=== PATIENT | female | born 1985 | race Caucasian/White ===

== ENCOUNTER 2019-09-20 20:58 | Emergency (ER) | payer BC ==
[~2019-09-20] VITALS: Ht 157.5 cm; Wt 63.5 kg
[2019-09-20 21:13] VITALS: BP 105/62
[2019-09-20] MEDS ORDERED: CEPH-264 PO (21:55)
[2019-09-20] MEDS ORDERED: MELO7.5T29 PO (21:55)
--- NOTE | 2019-09-20 21:56 | PHYS DOC ---
Past History Past Medical History: UTI Past Surgical History: Tubal ligation Smoking: Non-smoker Alcohol Use: None Drug Use: None Adult General Chief Complaint Chief Complaint: PAIN ON URINATION HPI HPI Patient is a 33-year-old female presents with painful urination like previous urinary tract infections. This started last night. Symptoms improve with Azo. Worse and as the Azo wears off. No back pain or flank pain. This is her third u rinary tract infection in the past month. No fever. No nausea or vomiting. Symptoms are mild to moderate in intensity.[] Review of Systems Review of Systems Constitutional: Denies fever or chills [] Eyes: Denies change in visual acuity, redness, or eye pain [] HENT: Denies nasal congestion or sore throat [] Respiratory: Denies cough or shortness of breath [] Cardiovascular: No chest pain or palpitations[] GI: Denies abdominal pain, nausea, vomiting, bloody stools or diarrhea [] : See history of present illness[] Musculoskeletal: Denies back pain or joint pain [] Integument: Denies rash or skin lesions [] Neurologic: Denies headache, focal weakness or sensory changes [] Endocrine: Denies polyuria or polydipsia [] All other systems were reviewed and found to be within normal limits, except as documented in this note. Allergies Allergies Allergies Coded Allergies Type Severity Reaction Last Updated Verified No Known Drug Allergies 09/20/19 No Physical Exam Physical Exam Constitutional: Well developed, well nourished, no acute distress, non-toxic appearance. [] HENT: Normocephalic, atraumatic, bilateral external ears normal, oropharynx moist, no oral exudates, nose normal. [] Eyes: PERRLA, EOMI, conjunctiva normal, no discharge. [] Neck: Normal range of motion, no tenderness, supple, no stridor. [] Cardiovascular:Heart rate regular rhythm, no murmur [] Lungs & Thorax: Bilateral breath sounds clear to auscultation [] Abdomen: Bowel sounds normal, soft, no tenderness, no masses, no pulsatile masses. [] Skin: Warm, dry, no erythema, no rash. [] Back: No tenderness, no CVA tenderness. [] Extremities: No tenderness, no cyanosis, no clubbing, ROM intact, no edema. [] Neurologic: Alert and oriented X 3, normal motor function, normal sensory function, no focal deficits noted. [] Psychologic: Affect normal, judgement normal, mood normal. [] Current Patient Data Vital Signs Vital Signs Date Time Temp Pulse Resp B/P (MAP) Pulse Ox O2 Delivery O2 Flow Rate FiO2 09/20/19 21:13 98.5 98 20 98 Room Air Lab Results Laboratory Tests Test 09/20/19 21:10 Urine Collection Type Unknown Urine Color Aline Urine Clarity Hazy Urine pH 5.0 Urine Specific [place] 1.015 Urine Protein (NEG-TRACE) Urine Glucose (UA) mg/dL (NEG) Urine Ketones (Stick) mg/dL (NEG) Urine Blood (NEG) Urine Nitrite (NEG) Urine Bilirubin (NEG) Urine Urobilinogen Dipstick mg/dL (0.2 mg/dL) Urine Leukocyte Esterase (NEG) EKG EKG [] Radiology/Procedures Radiology/Procedures [] Course & Med Decision Making Course & Med Decision Making Pertinent Labs and Imaging studies reviewed. (See chart for details) ED course: Patient arrived, was placed in bed, and tolerated exam well. She was given initial dose of antibiotics. Findings and plan were discussed with the patient voiced understanding. All questions were answered. She was discharged in improved condition. Medical decision making: Urinalysis is unable to be reasonably assessed given the presence of the Pyridium. Will treat her empirically. No evidence of pyelonephritis. No evidence of systemic toxicity.[] Dragon Disclaimer Dragon Disclaimer This electronic medical record was generated, in whole or in part, using a voice recognition dictation system. Departure Departure: Impression: Primary Impression: Urinary tract infection Disposition: 01 HOME, SELF-CARE Condition: IMPROVED Referrals: PCP,UNKNOWN (PCP) Patient Instructions: Urinary Tract Infection Additional Instructions: Drink plenty of fluids. Take the medication as prescribed. Follow-up with your regular doctor in 2 days. Return to the ER if worsening pain, fever of more than 101, unable to tolerate the medicine, or any other concerns. Scripts Meloxicam (MELOXICAM) 7.5 Mg Tablet 7.5 MG PO DAILY for PAIN, #20 TAB Prov: SOTO HOPE DO 09/20/19 Cephalexin (KEFLEX) 500 Mg Capsule 500 MG PO TID for UTI for 10 Days, #30 CAP Prov: SOTO HOPE DO 09/20/19 Problem Qualifiers Primary Impression: Urinary tract infection Urinary tract infection type: site unspecified Hematuria presence: without hematuria Qualified Codes: N39.0 - Urinary tract infection, site not specified SOTO HOPE DO Sep 20, 2019 21:56
[2019-09-20] MEDS ORDERED: CEPHALEXIN 250 MG CAPSULE PO ONE (22:00)
[2019-09-20 22:26] LABS: CLARITY,URINE HAZY; COLOR,URINE ORANGE
[2019-09-20 22:28] LABS: BACTERIA,URINE FEW /HPF (0-FEW); SQUAMOUS EPITHELIAL CELL,UR OCC /LPF; WBC,URINE 20-40 /HPF (0-4)
== END 2019-09-20 22:10 | disposition home or self-care (01) ==
LOC: ER 20:58
DX: N39.0 Urinary tract infection, site not specified (principal); Z87.440 Personal history of urinary (tract) infections; Z98.51 Tubal ligation status
CPT/HCPCS: 81001; 87086; 87186; 99284

== ENCOUNTER 2020-02-19 01:12 | Emergency (ER) | payer BC ==
[~2020-02-19] VITALS: Ht 157.5 cm; Wt 58.0 kg
[2020-02-19 01:12] VITALS: BP 147/91
[~2020-02-19 01:12] MED LIST: CEPH-264 PO; MELO7.5T29 PO
--- NOTE | 2020-02-19 01:46 | PHYS DOC ---
Past History Past Medical History: No Pertinent History, UTI Past Surgical History: Tubal ligation Smoking: Non-smoker Alcohol Use: None Drug Use: Cocaine General Adult EDM: Chief Complaint: Mouth pain HPI: HPI: Patient is a 34 year old female who presents with complaint of mouth pain. The patient states that she has had multiple episodes of mouth pain. She states that she has been diagnosed with thrush in the past few months and was started on oral treatment for this condition. She most recently was seen and started on an oral rinse medication, presumably nystatin, for treatment. She notes that she has no significant past medical history but does admit to regular use of cocaine. She presents tonight to the emergency department complaining that she is still having discomfort in her mouth and is concerned that her thrush is still present. She is also concerned that her use of cocaine may be causing her thrush and could be a sign that she "has no white blood cells." The patient does not engage in use of IV drug use. Patient states that she is monogamous wi th one sexual partner. She is not having any abnormal vaginal discharge or pelvic pain. Denies shortness of breath, chest pain, difficulty breathing, nausea, vomiting, or fever. She has had no known contact with any individuals who have been confirmed or suspected of having COVID-19. Review of Systems: Review of Systems: Constitutional: Denies fever or chills Eyes: Denies change in visual acuity HENT: Mouth pain, denies nasal congestion Respiratory: Denies cough or shortness of breath Cardiovascular: Denies chest pain or edema GI: Denies abdominal pain, nausea, vomiting, bloody stools or diarrhea : Denies dysuria Musculoskeletal: Denies back pain or joint pain Integument: Denies rash Neurologic: Denies headache, focal weakness or sensory changes Endocrine: Denies polyuria or polydipsia Lymphatic: Denies swollen glands Heart Score: Risk Factors: Heart score is not applicable to this patient case Risk Factors: DM, Current or recent (<one month) smoker, HTN, HLP, family history of CAD, obesity. Risk Scores: Score 0 - 3: 2.5% MACE over next 6 weeks - Discharge Home Score 4 - 6: 20.3% MACE over next 6 weeks - Admit for Clinical Observation Score 7 - 10: 72.7% MACE over next 6 weeks - Early Invasive Strategies Allergies: Allergies: Allergies Coded Allergies Type Severity Reaction Last Updated Verified No Known Drug Allergies 09/20/19 No Physical Exam: PE: Constitutional: Well developed, well nourished, no acute distress, non-toxic appearance. [] HENT: Normocephalic, atraumatic, bilateral external ears normal, oropharynx moist, no oral exudates, nose normal. [] Eyes: PERRLA, EOMI, conjunctiva normal, no discharge. [] Neck: Normal range of motion, no tenderness, supple, no stridor. [] Cardiovascular:Heart rate regular rhythm, no murmur [] Lungs & Thorax: Bilateral breath sounds clear to auscultation [] Abdomen: Bowel sounds normal, soft, no tenderness, no masses, no pulsatile masses. [] Skin: Warm, dry, no erythema, no rash. [] Back: No tenderness, no CVA tenderness. [] Extremities: No tenderness, no cyanosis, no clubbing, ROM intact, no edema. [] Neurologic: Alert and oriented X 3, normal motor function, normal sensory function, no focal deficits noted. [] Current Patient Data: Labs: Not performed Vital Signs: Vital Signs Date Time Temp Pulse Resp B/P (MAP) Pulse Ox O2 Delivery O2 Flow Rate FiO2 02/19/20 01:12 97.9 96 18 147/91 (109) 100 Room Air EKG: EKG: Not performed [] Radiology/Procedures: Radiology/Procedures: Not performed [] Course & Med Decision Making: Course & Med Decision Making Pertinent Labs and Imaging studies reviewed. (See chart for details) Patient's examination shows no findings consistent with thrush or other acute abnormalities. Vital signs are stable and patient does not appear ill at this time. The patient does not engage in high risk activities associated with HIV infection. Medical screening examination completed in the emergency department with no evidence for an acute severe or life-threatening process. Emergent lab testing not indicated at today's visit. Blood testing may be deferred as part of routine care through primary care physician once this is obtained. Counseled patient on need for abstaining from cocaine and discussed increased risk for heart attack and stroke associated with the use of this drug. Recommended to obtain follow-up with a primary care physician for routine care. Advised to finish use of oral medication prescribed to her for treatment of thrush as recommended by her previous provider. Recommended return to the emergency department for any worsening symptoms. Patient voiced understanding and agreement with treatment plan. [] Dragon Disclaimer: Dragon Disclaimer: This electronic medical record was generated, in whole or in part, using a voice recognition dictation system. Departure Departure: Impression: Primary Impression: Mouth pain Additional Impression: Feared condition not demonstrated Disposition: 01 HOME, SELF-CARE Condition: STABLE Referrals: PCP,NO (PCP) Additional Instructions: Your examination does not show any findings consistent with thrush of the mouth. This may be a result of the medication you are currently taking that is actively treating this condition. It is recommended that you finish this medication as prescribed at your previous visit. Your condition at this time is stable. You will need to obtain follow-up with a primary care physician for routine care. Please do this at your earliest convenience. Return to the emergency department for any worsening or severe symptoms. ARVIND MCGRAW MD Feb 19, 2020 01:46
== END 2020-02-19 01:50 | disposition home or self-care (01) ==
LOC: ER 01:12
DX: K13.79 Other lesions of oral mucosa (principal); Z71.1 Person with feared health complaint in whom no diagnosis is made; Z87.440 Personal history of urinary (tract) infections
CPT/HCPCS: 99281